=== PATIENT | female | born 1985 | race Caucasian/White ===

== ENCOUNTER 2021-09-29 11:30 | Outpatient (CLI) | payer OTHER, SELFPAY | END 2021-09-29 23:59 | disposition short-term general hospital (02) | LOC: LABSPEC 09-30 09:00 | PROVIDERS: Visit Provider Obstetrics & Gynecology | DX: Z36.85 Encounter for antenatal screening for Streptococcus B (principal) | CPT/HCPCS: 87081 ==

== ENCOUNTER 2021-10-20 15:03 | Outpatient (CLI) | payer OTHER, SELFPAY ==
[2021-10-20 15:05] LABS: Mucous, Urine 0 SEEN /hpf (<or=2+); Red Blood Cells-Urine 0 SEEN /hpf (0-5); White Blood Cells 0 SEEN /hpf (0-5)
[2021-10-20 17:06] LABS: Color, Urine Yellow (Yellow); Glucose, Dipstick Normal (Normal); Ketone-Dipstick 5 mg/dl (Negative); Leukocyte Esterase-Dipstick Negative /ul (Negative); Nitrite-Dipstick Negative (Negative); Occult Blood-Urine Negative /ul (Negative); Protein-Dipstick 15 mg/dl (Negative); Urine Bilirubin Dipstick Negative (Negative); Urine Clarity Clear (Clear); Urine Urobilinogen Normal (Normal)
[2021-10-20 17:10] LABS: Hematocrit 36.4 % (37-47); Hemoglobin 11.4 g/dL (12.0-15.0); Mean Corp Hgb Conc 31.3 g/dL (32-36); Mean Corpuscular Hgb 25.1 pg (27.0-32.0); Mean Corpuscular Volume 80.2 fL (81-99); Mean Platelet Vol. 10.7 fl (6.2-12.0); Platelet Count 277 K/mm3 (150-450); RBC Distribution Width CV 15.2 % (11.6-14.6); RBC Distribution Width SD 43.8 fl (35.1-43.9); Red Blood Count 4.54 M/mm3 (4.2-5.4); White Blood Count 8.3 K/mm3 (4.4-11.0)
[2021-10-20 17:24] LABS: Bacteria 1+ /hpf (None Seen); Squamous Epithelial Cells - UA 5-10 SEEN /hpf (5-10)
[2021-10-20 17:27] LABS: ALB/GLOB Ratio 0.6 RATIO (0.9-2.4); AST(SGOT) 17 U/L (15-37); Alanine Aminotransfer ALT/SGPT 22 U/L (13-56); Albumin, Serum 2.6 g/dL (3.2-5.0); Alkaline Phosphatase 119 U/L (45-117); Anion Gap 7 (5-15); BUN 10 mg/dL (7-18); BUN/Creat Ratio 16.6 RATIO (10-20); Calcium,Total 8.8 mg/dL (8.5-10.1); Chloride 109 mmol/L (98-107); EST Glomerular Filtration Rate 119 mL/min (>60); Est Glom Filt Rate - Afr Amer 144 mL/min (>60); Globulin 4.2 g/dL (2.2-4.2); Glucose 85 mg/dL (74-106); LDH 203 U/L (84-246); Potassium 3.8 mmol/L (3.5-5.1); Protein, Total 6.8 g/dL (6.4-8.2); Sodium Level 138 mmol/L (136-145)
[2021-10-20 17:45] LABS: Protein, Urine (Random) 24.8 mg/dL (<11.9); Protein:Creat Ratio 128 mg/g CRE (0-200)
== END 2021-10-20 23:59 | disposition short-term general hospital (02) ==
PROVIDERS: Visit Provider Obstetrics & Gynecology
DX: I10 Essential (primary) hypertension (principal)
CPT/HCPCS: 36415; 80053; 81001; 82570; 83615; 84156; 85027

== ENCOUNTER 2021-10-21 03:30 | Inpatient (IN) | payer SELFPAY, OTHER ==
[2021-10-21] VITALS (101 sets, daily range): BP systolic 122–182; BP diastolic 65–101; PULSE 53–180; RESP 14–18; TEMP 36.2–36.9; O2SAT 82–100; BMI 49.1
[2021-10-21 03:31] LABS: ROM Internal Control Test YES-OK TO RESULT pt. (Internal QC)
[2021-10-21 03:32] LABS: ROM Patient Test POSITIVE (Negative)
[2021-10-21] MEDS: Labetalol (Prefilled) 20 MG/4 ML IV ×3 (03:55→10:17)
[2021-10-21] MEDS: Lactated Ringers 1,000 ML 50 ML IV (03:55)
[2021-10-21] MEDS: Magnesium Sulfate 4gm/100mL 4 GM/100 ML IV.SOLN. IV (03:59)
[2021-10-21] MEDS: Magnesium Sulfate 4gm/100mL 2 GM/50 ML IV.SOLN. IV (04:19)
--- NOTE | 2021-10-21 04:44 | PCM.HP.OB ---
HPI - General General Date of Admission: 10/21/21 HPI Narrative BIA FLOWERS, is a 36 F who presents at 39 3/7 weeks gestation by 13w US with c/o leaking of fluid. SHe has a hx elevated blood pressure and had labs in the office yesterday. Maternal Data Information WALT Calculator Estimated Delivery Date Method Current WG Current Estimate 10/25/21 Manual 39w 3d PFSH [facility] Medical History (Updated 10/21/21 @ 04:[address] Alanna Stiles MD) Anxiety Gestational HTN Pre-eclampsia Seizures Superficial varicosities SVT (supraventricular tachycardia) Thyroid disorder Home Medications labetalol 100 mg PO BID 10/21/21 [History Last Taken 10/20/21 22:30] thyroid 120 mg PO DAILY 10/21/21 [History Last Taken Unknown] Allergy/AdvReac Type Severity Reaction Status Date / Time No Known Allergies Allergy Verified 10/21/21 03:12 Surgical History History of surgery Previous section Social History Smoking Status: Never smoker History 8 Elective abortions Hx Para 7 Spontaneous abortions Hx # Term Pregnancies Ectopic pregnancies Hx # Pregnancies Multiple births # of living children 7 NST FHR Rate Baby A Baseline: 130 Variability:: Moderate Accelerations:: 15 x 15 Decelerations:: None NST Reactive:: Appropriate for gestational age FHR Category:: Category I Uterine Activity:: 3/10 ROS Eyes Eyes: Denies change in vision Cardiovascular Cardiovascular: Denies chest pain or dyspnea Respiratory/Chest Respiratory/Chest: Denies cough or dyspnea Gastrointestinal Gastrointestinal: Denies abdominal pain Genitourinary Genitourinary: Reports contractions Neurologic Neurologic: Denies headache(s) Vital Signs Vital Signs Vital Signs: 10/21/21 03:07 10/21/21 03:08 10/21/21 03:25 Temperature 97.8 F Temperature Source Temporal Pulse Rate 99 94 Respiratory Rate Respiratory Effort Respiratory Depth Respiratory Pattern Blood Pressure 174/101 H 173/93 H Blood Pressure Mean BP Systolic 174 173 BP Diastolic 101 93 Blood Pressure Source Blood Pressure Position Blood Pressure Location Oxygen Delivery Method 10/21/21 03:41 10/21/21 04:07 10/21/21 04:09 Temperature 97.5 F L Temperature Source Temporal Pulse Rate 93 85 85 Respiratory Rate 16 Respiratory Effort Normal Respiratory Depth Normal Respiratory Pattern Normal Blood Pressure 172/93 H 153/87 H 153/87 H Blood Pressure Mean 109 BP Systolic 172 153 BP Diastolic 93 87 Blood Pressure Source Monitor Blood Pressure Position Semi-Fowlers Blood Pressure Location Left Arm Oxygen Delivery Method Room Air 10/21/21 04:15 10/21/21 04:17 10/21/21 04:24 Temperature Temperature Source Pulse Rate 82 78 Respiratory Rate 16 Respiratory Effort Respiratory Depth Respiratory Pattern Blood Pressure 140/87 H 140/87 H 139/88 H Blood Pressure Mean 104 BP Systolic 140 139 BP Diastolic 87 88 Blood Pressure Source Monitor Blood Pressure Position Semi-Fowlers Blood Pressure Location Right Arm Oxygen Delivery Method Room Air 10/21/21 04:25 10/21/21 04:35 10/21/21 04:37 Temperature Temperature Source Pulse Rate 83 83 Respiratory Rate 16 14 Respiratory Effort Normal Respiratory Depth Normal Respiratory Pattern Normal Blood Pressure 139/88 H 137/90 H 137/90 H Blood Pressure Mean 105 105 BP Systolic 137 BP Diastolic 90 Blood Pressure Source Monitor Monitor Blood Pressure Position Semi-Fowlers Semi-Fowlers Blood Pressure Location Left Arm Left Arm Oxygen Delivery Method Room Air Room Air Weight Weight: 133.98 kg Body Mass Index (BMI) 49.1 Physical Exam Const alert, oriented x3 and no apparent distress HEENT normocephalic Resp normal respiratory effort, normal air movement and clear to auscultation bilaterally Cardio regular rate and regular rhythm GI normal to inspection, nondistended, normoactive bowel sounds, soft to palpation, non-tender and non-distended Inspection: gravid Extremity Extremity Narrative: trace b/l LE edema to mid leg Neuro Neuro Narrative: no clonus, + 2 b/l LE DTRs Labs Labs Labs: Hct 36.4 % (37-47) L Hgb 11.4 g/dL (12.0-15.0) L ANTEPARTUM FLOW CHART VISIT GE RTC FU F F IL U U DATE WK MD WKS HT PN HR M SS BP ED WT IL GL D EF ST __ ____ ___ __ __ ___ __ __ __ ___ __ __ __ ___ __ 25 Sep JM 1 39 V + + 158/108 1+ 297 tr - Sep JMW 1 38 V + + 132/86 sl 293 - - S Sep JMW 1 37 V + + 142/90 sl 287 - - 2 50 -2 04 Sep JMW 1 36 V + + 139/90 tr 287 tr - 2 50 hi 14 Aug JMW 2 34 + + 128/74 sl 275 1+ - 30 Jul JMW 2 31 + + 140/88 sl 278 tr - 09 Aug 23 JMW 4 28 + + 130/88 sl 277 - - Jul 18 JMW 4 24 + + 129/93 sl 275 - - ANTEPARTUM NOTE(S): Oct 20 2021: ctx's Oct 13 2021: Ctxs-occas, Good FM Oct 06 2021: occ ctx; BPs OK at home cks daily Sep 29 2021: See prog note, LARC and GBS today Sep 08 2021: Not taking BP Med,Watching diet Aug 25 2021: Good FM,Sono Today, no PIH sxs, start labetalol Aug 04 2021: doing well, glucola today Jul 07 2021: wants to consult for COMPREHENSIVE ANTEPARTUM NOTE(S): Oct 20 2021: Bia is here for a pnv at 39/2. Good FM. 1+ edema in b/l ankles, pt states she was on her feet frequently yesterday. Continues to have ctx's, declines cervix check. No concerns expressed at this time. MK Oct 20 2021: 39 weeks, patient arrived with severe range blood pressures. After several repeat blood pressures still elevated. Patient asymptomatic. Based on these findings, diagnosed with severe preeclampsia with severe features based on blood pressures and recommended to go to labor and delivery for evaluation and induction of labor. Patient and hospital evaluation and induction, wish to go home Oct 13 2021: Bia presents here today with spouse for PNV and reports that she feels like her anxiety is better today, as she does not feel as nervous as she sometimes does when she comes for an appointment. Good FM and Occasional Contractions. Requests to be checked today. GRANT Oct 05 2021: H taken to OB. tkg Sep 29 2021: Patient BP rechecked large cuff 140/89. Patient states that she is not taking her BP medications she monitors at home. This morning patient's BP was 137/80 at 0915a at home. Patient states that she feels BP increases with appointments due to increased stress that she knows they will be elevated. jlb Sep 08 2021: Bia presents here today for PNV and admits that she is not taking the Labetalol that JW had ordered as she did not feel comfortable taking it when her BP runs well at home, and watching her diet and checking at home. Urine dip today with 1+ Protein and negative Glucose. BP 128/ 74 large cuff sitting. Denies headache or blurry vision. Good FM GRANT Aug 04 2021: Labs drawn from rt hand with 23g butterfly x 1 attempt. Patient tolerated well. Site without compromise. Jlb Jul 07 2021: Bia is here today for referral from Dr Dey for discussion of possible . Patient is a . Prior delivery was 02/2018 and was a for baby being in the transverse position. Patient states that lmp is 01/06/21 making her approximately 23wk at today's visit. Patient states that she has been doing well. Occasional elevated blood pressures but monitors at home. Patient will Assessment & Plan (1) Obesity affecting in third trimester: COMMENT: BMI 45 prepregnancy (2) Pre-eclampsia: QUALIFIERS: Trimester: third trimester Qualified Code(s): O14.93 - Unspecified pre-eclampsia, third trimester COMMENT: severe features PLAN: Magnesium sz ppx Reviewed with patient preeclampsia, risks associated with preeclampsia and severe range BPs BPs improved with Labetalol Labs yesterday evening reviewed and wnl Will defer preeclamptic labs at this time (3) 39 weeks gestation of : COMMENT: SROM, ROM plus positive PLAN: Latent labor - Pitocin status reassuring (4) Uterine scar from previous delivery, antepartum complication: COMMENT: Prior C/S x 1 PLAN: TOLAC desired Reviewed risks, benefits including risk for uterine rupture associated with injury, , maternal hemorrhage, need for emergent surgery Consents signed T&C x 2U
[2021-10-21] MEDS: Magnesium Sulfate 20 GM/500 ML BAG IV ×3 (05:00→23:52)
[2021-10-21] MEDS: Labetalol 200 MG Tablet PO (05:30)
[2021-10-21] MEDS: Oxytocin 30 units/NS 500 ml 30 UNITS/500 ML IV.SOLN IV (05:47)
[2021-10-21] MEDS: Thyroid 60 MG Tablet PO (07:17)
[2021-10-21 08:18] LABS: Hematocrit 35.1 % (37-47); Hemoglobin 11.2 g/dL (12.0-15.0); Mean Corp Hgb Conc 31.9 g/dL (32-36); Mean Corpuscular Hgb 25.6 pg (27.0-32.0); Mean Corpuscular Volume 80.3 fL (81-99); Mean Platelet Vol. 9.8 fl (6.2-12.0); Platelet Count 274 K/mm3 (150-450); RBC Distribution Width CV 15.4 % (11.6-14.6); RBC Distribution Width SD 44.7 fl (35.1-43.9); Red Blood Count 4.37 M/mm3 (4.2-5.4); White Blood Count 8.7 K/mm3 (4.4-11.0)
[2021-10-21] MEDS: fentaNYL 100 MCG/2 ML Ampul IV (08:45)
[2021-10-21 09:19] LABS: HIV - WCH Non-Reactive (Nonreactive); Hepatitis C Antibody Non-Reactive (Nonreactive)
--- NOTE | 2021-10-21 10:35 | PLAC_PTH ---
PATIENT: BIA FLOWERS LOC: [facility] U#:[id number] AGE/SX: 36/F ROOM: [facility]019 RE10/21/[address]: Dr. Alanna Stiles MD : 1985 BED: 1 DIS: 10/24/2021 SPEC #: [id number] RECD: 10/21/21 12:21 STATUS: KENYATTA FAULKNER #: [id number] FRANCISCO: 10/21/21 10:[address]: Alanna Villafana DEPT: SURGICAL PATHOLOGY RECD BY: Janel Mcleod ENTERED: 10/22/21 07:07 SP TYPE: PLACENTA OTHR DR: Dr. Reynaldo Rousseau MD Tissues: Placenta, NOS Procedures: Surgery Specimen Level V HEADER OPERATION: Vaginal delivery PRE-OP DIAGNOSIS: Delivery TISSUE SUBMITTED: Placenta MICROSCOPIC DIAGNOSIS Placenta: Placental disc - third trimester placenta (490 gm). - Focal chronic villitis of unknown etiology, infarction and increased intervillous and perivillous fibrin deposition. Membranes ? circummarginate insertion. Umbilical cord - three blood vessels and no pathologic diagnosis. SJ:rg 10/23/2021 COMMENT Case has been reviewed in consultation with Dr. Cantu who concurs with the above diagnosis. IDC:AM MICROSCOPIC DESCRIPTION Slides are reviewed. GROSS DESCRIPTION SPECIMEN: PLACENTA / CLINICAL INFORMATION: A. Weight: 3.895 kg B. Gestational Age: 39 weeks C. Sex: Female PLACENTAL WEIGHT (POST FIXATION): 490 gm PLACENTAL DIMENSIONS: 15 x 14 x 4 cm PLACENTAL SHAPE: Usual ovoid PLACENTAL WEIGHT FOR GESTATIONAL AGE: Within 10-99th percentile MEMBRANES - Present A. Insertion: Marginal. The membranes are inserted 1-2 cm away from the margin of placenta. B. Site of rupture from edge: 6 cm from edge of placental disc C. Color of membrane: Francis-wood D. Abnormalities: None UMBILICAL CORD - Present A. Color: Francis-wood B. Insertion: Central C. Length: 52 cm D. Diameter: 1.2 cm E. Number of vessels: Three F. Abnormalities: None PLACENTAL DISC - Present A. Color of surface: Francis-wood B. surface abnormalities: None C. Maternal cotyledons: Intact with minimal tears D. Attached retro placental clot: No clot E. Cut surface: Dark red and spongy F. Lesions: None G. Separate clot: Also present are multiple blood clots weighing 55 gm and measuring in aggregate 9 x 7 x 2.5 cm. SECTIONS SUBMITTED: 1. Membrane roll 2. Cord, maternal end, surface, insertion of placenta with membrane away from margin. 3. Cord, end, surface, insertion of placenta with membrane away from margin. 4. Placental disc, and maternal surfaces 5. Placental disc, and maternal surfaces 6. Placental disc, and maternal surfaces MARILOU:felisha 10/22/2021 TC:3 CPT: 97129
[2021-10-21] MEDS: Oxytocin 30 units/NS 500 ml 30 UNITS/500 ML IV.SOLN 334 UNITS IV (10:39)
--- NOTE | 2021-10-21 10:57 | EX.PCM.OBRPT ---
Assessment & Plan (1) Pre-eclampsia: QUALIFIERS: Trimester: third trimester Qualified Code(s): O14.93 - Unspecified pre-eclampsia, third trimester COMMENT: severe features (2) (vaginal after ): Maternal Data Information WALT Calculator Estimated Delivery Date Method Current WG Current Estimate 10/25/21 Manual 39w 3d Vaginal Delivery Maternal Presentation Maternal Presentation: Spontaneous Rupture of Membranes Maternal Presentation: Pitocin augmentation Medical Reason for Induction: Preeclampsia, eclampsia (Severe preeclampsia) Operative Information Date of Procedure: 10/21/21 Pre-Operative Diagnosis: 39 3/7 weeks gestation PReeclampsia with severe features Prior Low transverse section Post-Operative Diagnosis: 39 3/7 weeks gestation PReeclampsia with severe features Prior Low transverse section Surgery / Procedure Performed: Type of Anesthesia: None Estimated Blood Loss: 400 mL Time of Delivery: 10:35 Findings Description of Procedure: Patient was 9 cm 90% and 0 station on arrival to bedside. She reported significant urge to push. She pushed through the cervix with descent 2+4. She proceeded to deliver a female infant in OA with reduction of nuchal cord at the perineum. The infant was placed on maternal abdomen further attended by nursery personnel. The cord was doubly clamped and cut at 2 minutes of life and the placenta delivered spontaneously and appeared intact on inspection. A second-degree perineal laceration was repaired using 3-0 Vicryl Rapide with good hemostasis. Sponge and needle counts were correct x2. Presentation: Vertex Amniotic Membrane Rupture Type: Spontaneous Time of Membrane Rupture: 10/21/21 0130 Amniotic Fluid Description: Clear Placental Delivery Description: Spontaneous Placenta Disposition: [facility] Specimen(s) Removed: placenta Cord Vessel Description: 3 Vessels Cord Entanglement: Around neck x 1, loose Nuchal Cord Compression: Without compression Infant A Gender: Female (1 minute): 8 (5 minute): 9 Delayed Cord Clamping: Yes Post Vaginal Delivery Medications Given After Delivery: IV Pitocin Episiotomy Description: None Laceration: Perineal Extension/lac and 2nd degree Complication Complications: None
[2021-10-21] MEDS: Acetaminophen 500 MG Tablet 1000 MG PO ×2 (12:10→18:36)
[2021-10-21 12:21] LABS: Pathology Specimen OB SEE PATHOLOGY REPORT
[2021-10-21] MEDS: Ibuprofen 600 MG Tablet PO (14:33)
[2021-10-21] MEDS: Labetalol 200 MG Tablet 400 MG PO (22:19)
[2021-10-22] VITALS (49 sets, daily range): BP systolic 113–184; BP diastolic 70–92; PULSE 74–106; RESP 16–18; TEMP 36.3–36.9; O2SAT 84–99
[2021-10-22] MEDS: Acetaminophen 500 MG Tablet 1000 MG PO (07:42)
--- NOTE | 2021-10-22 08:26 | PCM.PN.OB ---
Subjective Subjective No overnight complaints. Pain well controlled. Denies headache, visual changes, chest pain, shortness of breath, nausea vomiting, right upper quadrant pain. Objective Data Objective Data Vital Signs: Vital Signs Temp Pulse Resp BP Pulse Ox 97.6 F L 89 16 128/70 H 99 10/22/21 07:00 10/22/21 07:46 10/22/21 07:00 10/22/21 07:46 10/22/21 07:46 Oxygen Delivery Method Room Air Weight: 295 lb 6 oz Body Mass Index (BMI) 49.1 Intake & Output: Intake and Output for Last 24 Hours 10/20/21 10/21/21 10/22/21 23:59 23:59 23:59 Intake Total 4821.76 / 4821.76 350 / 350 Output Total 2850 / 2850 1000 / 1000 Balance 1971.76 / 1971.76 -650 / -650 Lab / Micro Data Result Diagrams: 10/21/21 08:01 Labs: Laboratory Results - last 24 hr 10/21/21 05:02: Crossmatch See Detail 10/21/21 08:01: Hepatitis C Antibody Non-Reactive, HIV 1&2 Antibody Non-Reactive Micro: Microbiology 10/21/21 07:50 Nasal Secretion SARS-CoV-2 Antigen (Rapid) - Final Physical Exam Const alert, oriented x3, no apparent distress, average body habitus, healthy appearing and well nourished HEENT normocephalic and moist oral mucous membranes Head and Scalp: atraumatic Face and Sinus: normal facial exam Neck full ROM Resp normal respiratory effort, no retractions and no use of accessory muscles GI GI Narrative: Soft, nontender, uterus firm and below umbilicus Extremity normal to inspection, full ROM and no clubbing, cyanosis or edema Neuro deep tendon reflexes 2+ bilaterally Motor Exam: clonus absent Psych mental status grossly normal, affect normal, speech normal and activity/motor behavior normal Assessment & Plan (1) (vaginal after ): PLAN: day 1 status post . Breast-feeding. Pain well controlled. Preeclampsia with severe features based on severe range blood pressures, last IV medications 10/21/2021 at 1030. Overnight called by nursing with severe range blood pressures ordered for labetalol 40 mg IV and increase p.o. labetalol dose to 400 mg, after reviewing protocol with nursing patient's blood pressures nonsevere range. IV medications were held but p.o. labetalol 40 mg twice daily started. Since this episode nonsevere range blood pressures and patient remains asymptomatic. For 24 hours of magnesium after delivery to stop today 1030. We will continue to monitor patient and treat appropriately
[2021-10-22] MEDS: Thyroid 60 MG Tablet PO (08:30)
[2021-10-22] MEDS: Labetalol 200 MG Tablet 400 MG PO ×3 (09:55→21:32)
--- NOTE | 2021-10-22 12:25 | PCM.DC ---
Discharge Instructions Follow Up Care Test Results: Test results from this visit will be discussed in further detail at your follow-up appointment, if applicable. Discharge Plan Admission Admit Date/Time: 10/21/21 03:30 Attending Provider: Alanna Villafana Primary Care Provider: Reynaldo Rousseau Discharge Orders/Prescriptions Prescriptions: No Action labetalol 100 mg Tablet 100 mg PO BID RF: 0 thyroid 60 mg Tablet 120 mg PO DAILY RF: 0 Referrals / Follow Up: Reynaldo Rousseau MD [Primary Care Provider] -
[2021-10-22] MEDS: Labetalol (Prefilled) 20 MG/4 ML IV (21:43)
[2021-10-22] MEDS: Labetalol (Prefilled) 20 MG/4 ML 40 MG IV (22:23)
[2021-10-22] MEDS: Labetalol 200 MG Tablet PO (22:59)
[2021-10-23] VITALS (88 sets, daily range): BP systolic 104–199; BP diastolic 57–104; PULSE 75–96; RESP 16–18; TEMP 36.2–36.8; O2SAT 94–98
[2021-10-23] MEDS: Thyroid 60 MG Tablet PO (06:20)
[2021-10-23] MEDS: Labetalol (Prefilled) 20 MG/4 ML IV ×2 (08:28→20:31)
[2021-10-23] MEDS: Labetalol 200 MG Tablet 800 MG PO ×3 (08:32→21:41)
--- NOTE | 2021-10-23 08:43 | PCM.PN.OB ---
Subjective Subjective Patient comfortable in bed. No overnight complaints. Denies headache, visual changes, chest pain, shortness of breath, nausea vomiting, right upper quadrant pain. Objective Data Objective Data Vital Signs: Vital Signs Temp Pulse Resp BP Pulse Ox 98.2 F 77 18 131/82 H 97 10/22/21 21:03 10/23/21 08:41 10/23/21 02:33 10/23/21 08:41 10/23/21 08:39 Oxygen Delivery Method Room Air Weight: 295 lb 6 oz Body Mass Index (BMI) 49.1 Intake & Output: Intake and Output for Last 24 Hours 10/21/21 10/22/21 10/23/21 23:59 23:59 23:59 Intake Total 4821.76 / 4821.76 850 / 850 Output Total 2850 / 2850 1000 / 1000 Balance 1970.76 / 1970.76 -150 / -150 Lab / Micro Data Result Diagrams: 10/21/21 08:01 Micro: Microbiology 10/21/21 07:50 Nasal Secretion SARS-CoV-2 Antigen (Rapid) - Final Physical Exam Const alert, oriented x3, no apparent distress, average body habitus, healthy appearing and well nourished HEENT normocephalic and moist oral mucous membranes Head and Scalp: atraumatic Face and Sinus: normal facial exam Eyes PERRL Neck full ROM Resp normal respiratory effort, no retractions and no use of accessory muscles GI GI Narrative: Soft, nontender, uterus firm Extremity normal to inspection, full ROM and no clubbing, cyanosis or edema Neuro deep tendon reflexes 2+ bilaterally Motor Exam: clonus absent Psych mental status grossly normal, affect normal, speech normal and activity/motor behavior normal Assessment & Plan (1) (vaginal after ): PLAN: day 2 status post . Breast-feeding. Pain well controlled. Preeclampsia with severe features based on severe range blood pressures. Overnight given labetalol IV 20 mg, 40 mg at around 2245 and then increase labetalol p.o. to 600 mg twice daily. This morning upon evaluation again with severe range blood pressures that are persistent. After huddle with nursing and nursing supervisor fabrication department, given labetalol IV 20 mg and increased p.o. labetalol to 800 mg 3 times daily. Repeat blood pressures nonsevere range. Educated patient on severe range blood pressures, all questions answered. Discussed possibility of consult to specialist pending blood pressures. May consider restarting magnesium. Will start Lovenox 40 mg daily. We will continue to monitor blood pressures and treat appropriately
[2021-10-23] MEDS: Enoxaparin 40 MG/0.4 ML Syringe SC (10:08)
[2021-10-23] MEDS: 0.9% Saline Lock 10 ML Syringe IV (20:13)
--- NOTE | 2021-10-23 20:14 | NURSING ---
HR 86 prior to labetalol administration.
[2021-10-23] MEDS: hydrOXYzine PAM 25 MG Capsule PO (20:29)
[2021-10-23] MEDS: Zolpidem Tartrate 5 MG Tablet 10 MG PO (21:41)
[2021-10-23] MEDS: Labetalol (Prefilled) 20 MG/4 ML 40 MG IV (21:51)
--- NOTE | 2021-10-23 22:03 | NURSING ---
see vital sign tab for all HTN protocol vital signs that were obtained.
[2021-10-24] VITALS (29 sets, daily range): BP systolic 125–169; BP diastolic 60–91; PULSE 79–100; O2SAT 97–99
[2021-10-24] MEDS: hydrOXYzine PAM 25 MG Capsule PO (04:15)
[2021-10-24] MEDS: Labetalol 200 MG Tablet 800 MG PO (05:15)
[2021-10-24] MEDS: Thyroid 60 MG Tablet PO (05:15)
--- NOTE | 2021-10-25 15:11 | NURSING ---
information obtained from downtime form
== END 2021-10-24 10:15 | disposition home or self-care (01) | DRG 807 ==
LOC: WPOUT 03:32 → WP 03:32
PROVIDERS: Admitting Provider Obstetrics & Gynecology; PCP Family Medicine; Visit Provider Obstetrics & Gynecology
DX: O14.14 Severe pre-eclampsia complicating childbirth (principal); Z37.0 Single live birth; E07.9 Disorder of thyroid, unspecified; Z3A.39 39 weeks gestation of pregnancy; O34.211 Maternal care for low transverse scar from previous cesarean delivery; O99.213 Obesity complicating pregnancy, third trimester; O70.1 Second degree perineal laceration during delivery; O69.81X0 Labor and delivery complicated by cord around neck, without compression, not applicable or unspecified; Z20.822 Contact with and (suspected) exposure to COVID-19; O99.284 Endocrine, nutritional and metabolic diseases complicating childbirth
CPT/HCPCS: 36415; 59025; 59050; 84112; 85027; 86703; 86803; 86850; 86900; 86901; 86920; 87426; 88307; 99218; J7120; A4216; G0378